=== PATIENT | female | born 1970 | race Hispanic/Latino ===

== ENCOUNTER 2022-01-10 10:47 | Emergency (ER) | payer OTHER ==
--- OUTSIDE RECORDS SUMMARY | 2022-01-10 10:50 | XMS REPORT | Continuity of Care Document ---
:1970 Author Organization [facility] t Address [address] [place] [address] Dr. Nolasco [address] [place] [id number] Care Team Providers Name Role Phone Unavailable Unavailable Unavailable Problems This patient has no known problems. Allergies, Adverse Reactions, Alerts This patient has no known allergies or adverse reactions. Medications This patient has no known medications. Procedures This patient has no known procedures. Results This patient has no known results.
[2022-01-10 11:36] LABS: Absolute Lymphocytes (CBC) 1.5 K/uL (0.7-4.9); Hematocrit 42.5 % (36.0-45.0); Lymphocytes % 33.3 % (15.3-44.8); MPV 8.5 fL (7.6-11.3); RBC Red Blood Cell Count 4.81 M/uL (3.86-4.86)
[2022-01-10 11:40] LABS: Protime INR 1.04
[2022-01-10 11:48] LABS: Urine Blood Trace-lysed (Negative); Urine Glucose Negative (Negative); Urine Protein Negative (Negative); Urine Specific Gravity >=1.030 (1.005-1.030); Urine pH 5.5 (5.0-7.0)
[2022-01-10 11:54] LABS: ALT/SGPT 24 U/L (12-78); AST/SGOT 13 U/L (15-37); Albumin 3.9 g/dL (3.4-5.0); Alkaline Phosphatase 119 U/L (45-117); BUN Blood Urea Nitrogen 16 mg/dL (7-18); Bicarbonate 28 mmol/L (21-32); Bilirubin Direct 0.1 mg/dL (0-0.2); Bilirubin Total 0.4 mg/dL (0.2-1.0); Glucose Level 100 mg/dL (74-106); Magnesium 2.2 mg/dL (1.8-2.4); NT PRO-BNP 72 pg/mL (<125); Potassium 3.8 mmol/L (3.5-5.1); Protein, Total 7.5 g/dL (6.4-8.2); Sodium Level 140 mmol/L (136-145); Troponin High Sensitivity 4.9 pg/mL (<58.9)
[2022-01-10 12:00] LABS: C-Reactive Protein < 2.90 mg/L (<3.00)
[2022-01-10] MEDS ORDERED: FOLIC ACID 5 MG/ML VIAL ONE (12:07)
[2022-01-10] MEDS ORDERED: NA CHLORIDE 0.9% 1,000 ML ONE (12:07)
--- NOTE | 2022-01-10 12:36 | RAD REPORT ---
EXAM DESCRIPTION: CT - Head Brain Wo Cont - 01/10/2022 12:04 pm CLINICAL HISTORY: DIZZINESS COMPARISON: Head angio dated 01/10/2022 TECHNIQUE: All CT scans are performed using dose optimization technique as appropriate and may inclu de automated exposure control or mA/KV adjustment according to patient size. FINDINGS: No intracranial hemorrhage, hydrocephalus or extra-axial fluid collection.No areas of brai n edema or evidence of midline shift. The paranasal sinuses and mastoids are clear. The calvarium is intact. IMPRESSION: No acute intracranial abnormality.
--- NOTE | 2022-01-10 12:37 | RAD REPORT ---
EXAM DESCRIPTION: CT - Head angio - 01/10/2022 12:04 pm CLINICAL HISTORY: HEADACHE COMPARISON: No comparisons TECHNIQUE: CT angiography of the head was performed with MIPs. All CT scans are performed using dose optimization technique as appropriate and may include automated exposure control or mA/KV adjustment according to patient size. FINDINGS: Anterior circulation: No aneurysm or large vessel occlusion. No hemodynamically significant stenosis. No arteriovenous malf ormation identified. Posterior circulation: No aneurysm or large vessel occlusion. No hemodynamically significant stenosis. No arteriovenous malf ormation identified. IMPRESSION: No significant flow abnormality is detected.
--- NOTE | 2022-01-10 12:39 | RAD REPORT ---
EXAM DESCRIPTION: CT - Neck Angio - 01/10/2022 12:05 pm CLINICAL HISTORY: HEADACHE COMPARISON: No comparisons TECHNIQUE: CT angiography of the neck vessels was performed with MIPs. All CT scans are performed using dose optimization technique as appropriate and may include automated exposure control or mA/KV adjustment according to patient size. FINDINGS: A left aortic arch is identified with normal three vessel configuration of the great vesse ls. No significant flow abnormality is seen of the common carotid bilaterally. No significant stenosis is identified involving the cervical segments of both internal carotid arteri es. Left dominant vertebral artery. IMPRESSION: No significant flow abnormality of the neck vessels is identified.
--- NOTE | 2022-01-10 12:44 | RAD REPORT ---
EXAM DESCRIPTION: RAD - Chest Single View - 01/10/2022 12:11 pm CLINICAL HISTORY: COUGH COMPARISON: No comparisons FINDINGS: Lines: None. Lungs: No evidence of edema or pneumonia. Pleural: No significant pleural effusions or pneumothorax. Cardiac: The heart size is within normal limits. Bones: No acute fractures. Other: IMPRESSION: No acute cardiopulmonary disease.
--- NOTE | 2022-01-10 13:02 | EDPHYS ---
Physician Documentation [facility] Name: Alfonso Waldron Age: 51 yrs Sex: Female : 1970 Arrival Date: 01/10/2022 Time: 10:51 Bed 5 Private MD: ED Physician Apolinar Swan HPI: 01/10 12:56 This 51 yrs old Female presents to ER via Ambulatory with complaints of joleen Headache, Numbness, Arm Pain. 12:56 The patient complains of pain to the top of head, left frontal area, left side of the joleen back of head, left occipital area and left base of the skull. The patient describes the headache as aching. Onset: The symptoms/episode began/occurred 2 day(s) ago. Associated signs and symptoms: The patient has no apparent associated signs or symptoms. Severity of symptoms: At its worst the pain was mild, in the emergency department the pain is unchanged. Headache History: The patient has had previous headaches and this one is similar to previous episodes. The symptoms are alleviated by nothing. the symptoms are aggravated by nothing. The patient has not experienced similar symptoms in the past. Historical: - Allergies: 10:58 Tylenol; ab2 - PMHx: 10:58 None; ab2 - PSHx: 10:58 section; ab2 - Immunization history:: Adult Immunizations up to date. - Social history:: Smoking status: Patient denies any tobacco usage or history of. - Family history:: not pertinent. ROS: 12:56 Constitutional: Negative for fever, chills, and weight loss, Eyes: Negative for injury, joleen pain, redness, and discharge, ENT: Negative for injury, pain, and discharge, Neck: Negative for injury, pain, and swelling, Cardiovascular: Negative for chest pain, palpitations, and edema, Respiratory: Negative for shortness of breath, cough, wheezing, and pleuritic chest pain, Abdomen/GI: Negative for abdominal pain, nausea, vomiting, diarrhea, and constipation, Back: Negative for injury and pain, : Negative for injury, bleeding, discharge, and swelling, Skin: Negative for injury, rash, and discoloration, Neuro: Negative for headache, weakness, numbness, tingling, and seizure, Psych: Negative for depression, anxiety, suicide ideation, homicidal ideation, and hallucinations, Allergy/Immunology: Negative for hives, rash, and allergies, Endocrine: Negative for neck swelling, polydipsia, polyuria, polyphagia, and marked weight changes, Hematologic/Lymphatic: Negative for swollen nodes, abnormal bleeding, and unusual bruising. 12:56 MS/extremity: Positive for decreased range of motion, pain, of the left trapezius, left scapular area, left arm and left leg. Exam: 12:56 Constitutional: This is a well developed, well nourished patient who is awake, alert, joleen and in no acute distress. Head/Face: Normocephalic, atraumatic. Eyes: Pupils equal round and reactive to light, extra-ocular motions intact. Lids and lashes normal. Conjunctiva and sclera are non-icteric and not injected. Cornea within normal limits. Periorbital areas with no swelling, redness, or edema. ENT: Nares patent. No nasal discharge, no septal abnormalities noted. Tympanic membranes are normal and external auditory canals are clear. Oropharynx with no redness, swelling, or masses, exudates, or evidence of obstruction, uvula midline. Mucous membranes moist. Neck: Trachea midline, no thyromegaly or masses palpated, and no cervical lymphadenopathy. Supple, full range of motion without nuchal rigidity, or vertebral point tenderness. No Meningismus. Chest/axilla: Normal chest wall appearance and motion. Nontender with no deformity. No lesions are appreciated. Cardiovascular: Regular rate and rhythm with a normal S1 and S2. No gallops, murmurs, or rubs. Normal PMI, no JVD. No pulse deficits. Respiratory: Lungs have equal breath sounds bilaterally, clear to auscultation and percussion. No rales, rhonchi or wheezes noted. No increased work of breathing, no retractions or nasal flaring. Abdomen/GI: Soft, non-tender, with normal bowel sounds. No distension or tympany. No guarding or rebound. No evidence of tenderness throughout. Back: No spinal tenderness. No costovertebral tenderness. Full range of motion. Skin: Warm, dry with normal turgor. Normal color with no rashes, no lesions, and no evidence of cellulitis. MS/ Extremity: Pulses equal, no cyanosis. Neurovascular intact. Full, normal range of motion. Neuro: Awake and alert, GCS 15, oriented to person, place, time, and situation. Cranial nerves II-XII grossly intact. Motor strength 5/5 in all extremities. Sensory grossly intact. Cerebellar exam normal. Normal gait. Psych: Awake, alert, with orientation to person, place and time. Behavior, mood, and affect are within normal limits. 12:56 Neuro: Orientation: is normal, appropriate for stated age, no acute changes, Mentation: is normal, appropriate for stated age, no acute changes, Memory: is normal, appropriate for stated age, no acute changes, Cranial nerves: grossly normal, is grossly normal based on the patient's age, no acute changes, CN II- XII are normal as tested, extraocular movements are intact, Facial palsy and sensory deficits are absent. Nystagmus is absent. Cerebellar function: is grossly normal, is grossly normal based on the patient's age, no acute changes, Motor: is normal, is grossly normal based on the patient's age, no acute changes, moves all fours, Sensation: is normal, no obvious gross deficits, appropriate no acute changes, Gait: is steady, appropriate for age, seizure activity, is not displayed by the patient. 13:07 ECG was reviewed by the Attending Physician. [facility] Vital Signs: 10:54 BP 142 / 87; Pulse 65; Resp 16; Temp 97.8(TE); Pulse Ox 100% on R/A; Weight 58.97 kg; ab2 Height 5 ft. 0 in. (152.40 cm); Pain 8/10; 11:00 BP 138 / 80; Pulse 70; Resp 18; Pulse Ox 100% ; jh6 13:30 BP 132 / 76; Pulse 74; Resp 16; Temp 97.7(O); Pulse Ox 100% ; Pain 3/10; jh6 10:54 Body Mass Index 25.39 (58.97 kg, 152.40 cm) ab2 NIH Stroke Scale Scores: 10:58 NIHSS Score: 0 ab2 Lacie Coma Score: 12:59 Eye Response: spontaneous(4). Verbal Response: oriented(5). Motor Response: obeys [facility] commands(6). Total: 15. MDM: 11:03 Patient medically screened. joleen 12:59 Differential diagnosis: cluster headache, hypertensive headache, hyponatremia, joleen intracerebral hemorrhage, migraine, neoplasm, otitis, sinusitis, temporal arteritis, tension headache. Data reviewed: vital signs, nurses notes, lab test result(s), EKG, radiologic studies, CT scan, plain films. Data interpreted: marketing services manager: rate is 65 beats/min, rhythm is regular, Pulse oximetry: on room air is 100 %. Test interpretation: by ED physician or midlevel provider: ECG, plain radiologic studies. Counseling: I had a detailed discussion with the patient and/or guardian regarding: the historical points, exam findings, and any diagnostic results supporting the discharge/admit diagnosis, lab results, radiology results, the need for outpatient follow up, for definitive care, a family practitioner, a neurologist. 01/10 11:05 Order name: Basic Metabolic Panel; Complete Time: 12:22 [facility] 01/10 11:05 Order name: CBC with Diff; Complete Time: 12: [facility] 01/10 11:05 Order name: LFT's; Complete Time: 12: [facility] 01/10 11:05 Order name: Magnesium; Complete Time: 12: [facility] 01/10 11:05 Order name: NT PRO-BNP; Complete Time: 12:22 [facility] 01/10 11:05 Order name: PT-INR; Complete Time: 12:22 [facility] 01/10 11:05 Order name: Troponin HS; Complete Time: 12:22 [facility] 01/10 11:05 Order name: XRAY Chest (1 view); Complete Time: 12:55 [facility] 01/10 11:05 Order name: CT Head Brain wo Cont; Complete Time: 12:55 [facility] 01/10 11:05 Order name: CT Head Angio; Complete Time: 12:55 [facility] 01/10 11:06 Order name: CRP; Complete Time: 12:22 [facility] 01/10 11:06 Order name: Sed Rate; Complete Time: 12:22 [facility] 01/10 11:48 Order name: Urine Dipstick-Ancillary; Complete Time: 12:22 [facility] 01/10 11:56 Order name: Urine --Ancillary (enter results); Complete Time: 12:55 01/10 11:05 Order name: EKG; Complete Time: 11:05 [facility] 01/10 11:05 Order name: Cardiac monitoring [facility] 01/10 11:05 Order name: EKG - Nurse/Tech [facility] 01/10 11:05 Order name: IV Saline Lock; Complete Time: 12:42 [facility] 01/10 11:05 Order name: Labs collected and sent; Complete Time: 12:41 [facility] 01/10 11:05 Order name: O2 Per Protocol; Complete Time: 12:41 [facility] 01/10 11:05 Order name: O2 Sat Monitoring; Complete Time: 12:41 [facility] 01/10 11:05 Order name: CT Neck Angio; Complete Time: 12:55 [facility] 01/10 11:06 Order name: Urine Dipstick-Ancillary (obtain specimen); Complete Time: 11:53 [facility] EC:07 Rate is 56 beats/min. Rhythm is regular. QRS Waldo is Normal. NH interval is normal. QRS joleen interval is normal. QT interval is normal. No Q waves. T waves are Normal. No ST changes noted. Clinical impression: Normal ECG, Sinus bradycardia, and No evidence of ischemia. Interpreted by me. Reviewed by me. Administered Medications: 12:52 Drug: NS 0.9% 1000 ml Route: IV; Rate: 1 bolus; Site: left antecubital; [facility] 12:53 Drug: foLIC Acid 1 mg Route: IVPB; Site: left antecubital; [facility] 13:37 Not Given (Patient Refused): Aspirin Chewable Tablet 324 mg PO once; 81 mg tablets x 4 [facility] Disposition Summary: 01/10/22 13:01 Discharge Ordered Location: Home joleen Problem: new joleen Symptoms: have improved joleen Condition: Stable joleen Diagnosis - Weakness joleen - Headache joleen Followup: joleen - With: Private Physician - When: 2 - 3 days - Reason: Recheck today's complaints, Continuance of care, Re-evaluation by your physician Followup: joleen - With: Aneesh Mcgowan MD - When: 2 - 3 days - Reason: Recheck today's complaints, Continuance of care, Re-evaluation by your physician Discharge Instructions: - Discharge Summary Sheet joleen - General Headache Without Cause joleen - Aspirin and Your Heart joleen - General Headache Without Cause, [id number] joleen Forms: - Medication Reconciliation Form joleen - Thank You Letter joleen - Antibiotic Education joleen - Prescription Opioid Use joleen Prescriptions: - Folic Acid 1 mg Oral Tablet - take 1 tablet by ORAL route once daily; 30 tablet; Refills: 0, Product joleen Selection Permitted NIH Stroke Scale - NIH Stroke Score Date: 01/10/2022 Time: 10:58 Total Score = 0 1a. Level of Consciousness (LOC) - 0(Alert) 1b. Level of Consciousness (LOC) (Month \T\ Age) - 0(Both) 1c. LOC Commands (Open \T\ Closes Eyes/Assembly Stock Supervisor) - 0(Both) 2. Best Gaze (Lateral Gaze Paresis) - 0(Normal) 3. Visual Field Loss - 0(No visual loss) 4. Facial Palsy - 0(Normal) 5a. Left Arm: Motor (10-second hold) - 0(No drift) 5b. Right Arm: Motor (10-second hold) - 0(No drift) 6a. Left Leg: Motor (5-second hold - always test supine) - 0(No drift) 6b. Right Leg: Motor (5-second hold - always test supine) - 0(No drift) 7. Limb Ataxia (finger/nose \T\ heel/iglesias - test with eyes open) - 0(Absent) 8. Sensory Loss (pinprick arms/legs/face) - 0(Normal) 9. Best Language: Aphasia (description/naming/reading) - 0(No aphasia) 10. Dysarthria (speech clarity - read or repeat words) - 0(Normal) 11. Extinction and Inattention (visual/tactile/auditory/spatial/personal) - 0(No abnormality) Initials: ab2 Signatures: Dispatcher [employer] EDApolinar Schuster MD MD cha Hastedt, Jennifer, RN RN 6 Quincy Domínguez ab2 Corrections: (The following items were deleted from the chart) 10:58 10:58 Allergies: No Known Allergies; ab2 ab2
--- NOTE | 2022-01-10 13:02 | ER ---
Nurse's Notes [facility] Name: Alfonso Waldron Age: 51 yrs Sex: Female : 1970 Arrival Date: 01/10/2022 Time: 10:51 Bed 5 Private MD: Diagnosis: Weakness;Headache Presentation: 01/10 10:54 Chief complaint: Patient states: "I have a headache on the left side of my head and the ab2 left side of my body feels weak. When I turn my head a certain way my neck hurts too" Pt states this started 2 weeks ago. Coronavirus screen: Vaccine status: Patient reports receiving the 2nd dose of the covid vaccine. Client denies travel out of the [place] in the last 14 days. At this time, the client does not indicate any symptoms associated with coronavirus-19. Ebola Screen: Patient negative for fever greater than or equal to 101.5 degrees Fahrenheit, and additional compatible Ebola Virus Disease symptoms Patient denies exposure to infectious person. Patient denies travel to an Ebola-affected area in the 21 days before illness onset. No symptoms or risks identified at this time. Initial Sepsis Screen: Does the patient meet any 2 criteria? No. Patient's initial sepsis screen is negative. Does the patient have a suspected source of infection? No. Patient's initial sepsis screen is negative. Risk Assessment: Do you want to hurt yourself or someone else? Patient reports no desire to harm self or others. Onset of symptoms is unknown. 10:54 Method Of Arrival: Ambulatory ab2 10:54 Acuity: DAWNA 3 ab2 Triage Assessment: 10:58 Headache History: Denies prior headaches. General: Appears in no apparent distress. ab2 uncomfortable, Behavior is calm, cooperative, appropriate for age. Pain: Complains of pain in head Pain currently is 8 out of 10 on a pain scale. Pain began 2-3 days ago. Also complains of weakness. Neuro: Level of Consciousness is awake, alert, obeys commands, Oriented to person, place, time, situation, Appropriate for age Studio Operations Manager are equal bilaterally Moves all extremities. Gait is steady, Speech is normal, Facial symmetry appears normal, Intact Reports headache in left weakness in left arm and left leg. Cardiovascular: Denies chest pain, shortness of breath, Patient's skin is warm and dry. Respiratory: Airway is patent Respiratory effort is even, unlabored, Respiratory pattern is regular, Denies shortness of breath. Historical: - Allergies: 10:58 Tylenol; ab2 - PMHx: 10:58 None; ab2 - PSHx: 10:58 section; ab2 - Immunization history:: Adult Immunizations up to date. - Social history:: Smoking status: Patient denies any tobacco usage or history of. - Family history:: not pertinent. Screenin:55 Abuse screen: Denies threats or abuse. Denies injuries from another. jh6 10:55 Nutritional screening: No deficits noted. Tuberculosis screening: No symptoms or risk jh6 factors identified. Fall Risk None identified. Assessment: 11:00 General: Appears in no apparent distress. comfortable, slender, well groomed, well jh6 developed, well nourished, Behavior is calm, cooperative. 11:00 Pain: Complains of pain in occipital area and base of the skull Pain radiates to scalp jh6 and left arm Pain currently is 4 out of 10 on a pain scale. Quality of pain is described as burning, sharp, Pain began 1-2 weeks ago Is intermittent, Alleviated by rest, Aggravated by exercise, increased activity, repositioning. Neuro: Level of Consciousness is awake, alert, obeys commands, Oriented to person, place, time, Studio Operations Manager are equal bilaterally. 12:20 Reassessment: No changes from previously documented assessment. Patient and/or family jh6 updated on plan of care and expected duration. Pain level reassessed. 13:30 Reassessment: Patient and/or family updated on plan of care and expected duration. Pain jh6 level reassessed. pt states that if she moves her head towards the left the pain in the back of her head is worse. states that she feels better if she does not move her neck. Vital Signs: 10:54 BP 142 / 87; Pulse 65; Resp 16; Temp 97.8(TE); Pulse Ox 100% on R/A; Weight 58.97 kg; ab2 Height 5 ft. 0 in. (152.40 cm); Pain 8/10; 11:00 BP 138 / 80; Pulse 70; Resp 18; Pulse Ox 100% ; jh6 13:30 BP 132 / 76; Pulse 74; Resp 16; Temp 97.7(O); Pulse Ox 100% ; Pain 3/10; jh6 10:54 Body Mass Index 25.39 (58.97 kg, 152.40 cm) ab2 Lacie Coma Score: 12:59 Eye Response: spontaneous(4). Verbal Response: oriented(5). Motor Response: obeys joleen commands(6). Total: 15. NIH Stroke Scale Scores: 10:58 NIHSS Score: 0 ab2 ED Course: 10:51 Patient arrived in ED. rg4 10:58 Triage completed. ab2 11:00 Arm band placed on right wrist. ab2 11:03 Apolinar Swan MD is Attending Physician. joleen 11:03 Patient has correct armband on for positive identification. Bed in low position. Call mh5 light in reach. Adult w/ patient. Warm blanket given. Pulse ox on. NIBP on. 11:58 No provider procedures requiring assistance completed. jh6 12:06 CT Head Brain wo Cont In Process Unspecified. EDMS 12:06 CT Head Angio In Process Unspecified. EDMS 12:06 CT Neck Angio In Process Unspecified. EDMS 12:10 Inserted saline lock: 20 gauge in left antecubital area, using aseptic technique. Blood jh6 collected. 12:12 XRAY Chest (1 view) In Process Unspecified. EDMS 12:39 Milli Beckford, RN is Primary Nurse. jh6 13:00 Aneesh Mcgwoan MD is Referral Physician. joleen 13:47 IV discontinued, intact, bleeding controlled, No redness/swelling at site. jh6 Administered Medications: 12:52 Drug: NS 0.9% 1000 ml Route: IV; Rate: 1 bolus; Site: left antecubital; jh6 12:53 Drug: foLIC Acid 1 mg Route: IVPB; Site: left antecubital; jh6 13:37 Not Given (Patient Refused): Aspirin Chewable Tablet 324 mg PO once; 81 mg tablets x 4 6 Outcome: 13:01 Discharge ordered by . joleen 13:30 Discharged to home ambulatory. jh6 13:30 Condition: stable 13:30 Discharge instructions given to patient, family, Instructed on discharge instructions, follow up and referral plans. Demonstrated understanding of instructions, follow-up care, medications, Prescriptions given X 2. 13:47 Patient left the ED. 6 NIH Stroke Scale - NIH Stroke Score Date: 01/10/2022 Time: 10:58 Total Score = 0 1a. Level of Consciousness (LOC) - 0(Alert) 1b. Level of Consciousness (LOC) (Month \\T\\ Age) - 0(Both) 1c. LOC Commands (Open \\T\\ Closes Eyes/Virtual Recruiter) - 0(Both) 2. Best Gaze (Lateral Gaze Paresis) - 0(Normal) 3. Visual Field Loss - 0(No visual loss) 4. Facial Palsy - 0(Normal) 5a. Left Arm: Motor (10-second hold) - 0(No drift) 5b. Right Arm: Motor (10-second hold) - 0(No drift) 6a. Left Leg: Motor (5-second hold - always test supine) - 0(No drift) 6b. Right Leg: Motor (5-second hold - always test supine) - 0(No drift) 7. Limb Ataxia (finger/nose \\T\\ heel/iglesias - test with eyes open) - 0(Absent) 8. Sensory Loss (pinprick arms/legs/face) - 0(Normal) 9. Best Language: Aphasia (description/naming/reading) - 0(No aphasia) 10. Dysarthria (speech clarity - read or repeat words) - 0(Normal) 11. Extinction and Inattention (visual/tactile/auditory/spatial/personal) - 0(No abnormality) Initials: ab2 Signatures: Dispatcher [employer] EDApolinar Schuster MD MD cha Garcia, Rubi Uyen Mcfarland 5 Milli Beckford RN RN jh6 Quincy Domínguez ab2 Corrections: (The following items were deleted from the chart) 10:58 10:58 Allergies: No Known Allergies; ab2 ab2
[2022-01-10 14:48] VITALS: O2SAT 100
[2022-01-10 14:51] VITALS: BP 132/76; TEMP 97.7
--- NOTE | 2022-01-12 09:28 | EKG ---
Test Date: 2022-01-10 Test Time: 13:07:49 Chemist Enzymes: MOON MEASUREMENT RESULTS: Intervals: Rate: 56 TX: 166 QRSD: 88 QT: 438 QTc: 422 [place]: P: 44 TX: 166 QRS: 72 T: 63 INTERPRETIVE STATEMENTS: Sinus bradycardia Otherwise normal ECG No previous ECG available for comparison Electronically Signed On 01-12-22 09:25:58 CDT by Ulysses Clemens
== END 2022-01-10 13:47 | disposition home or self-care (01) ==
LOC: ER 10:47
DX: R51.9 Headache, unspecified (principal); R53.1 Weakness; R20.0 Anesthesia of skin; Z88.6 Allergy status to analgesic agent
CPT/HCPCS: 93005; 85025; 80048; 36415; 83735; 81025; 85610; 82565; 80076; 85652; 81003; 84484; 83880; 86140; 70450; 70496; 70498; 71045; 96374; 99284; J7030

== ENCOUNTER 2022-11-05 19:51 | Emergency (ER) | payer OTHER ==
--- OUTSIDE RECORDS SUMMARY | 2022-11-05 19:57 | XMS REPORT | Continuity of Care Document ---
:1970 Author Organization [facility] t Address [address] [place] [address] Care Team Providers Name Role Phone Kelin Atkinson Primary Care Physician [phone] Problems This patient has no known problems. Allergies, Adverse Reactions, Alerts Allergy Allergy Status Severity Reaction(s) Onset Inactive Treating Comm ents Source Name Type Date Date Clinician Tylenol Propensi Active - Oral ty to 03-26 adverse 00:00: reaction 00 to drug Medications Ordered Filled Start Stop Current Ordering Indication Dosage Frequency Signature Comments Components Source Medication Medication Date Date Medication? Clinician (SIG) Name Name TAKE 2021-10 No TABLET AT 1-09 BEDTIME 00:00: NEEDED. 00 Dose 2021-10 No Unknown 0-10 00:00: 00 Dose 2021-10 No Unknown 0-10 00:00: 00 Dose 2021-0 No 25 Unknown 8-16 00:00: 00 Dose 2021-0 No 25 Unknown 8-16 00:00: 00 Dose 2021-0 No 25 Unknown 8-16 00:00: 00 Dose 2021-0 No 250 Unknown 7-28 00:00: 00 TAKE 1 2021-0 No 25 TABLET BY 7-28 MOUTH EVERY 00:00: DAY 00 Dose 2021-0 No 250 Unknown 728 00:00: 00 TAKE 1 2021-0 No 25 TABLET BY 7-28 MOUTH EVERY 00:00: DAY 00 Dose 2021-0 No 250 Unknown 728 00:00: 00 TAKE 1 2021-0 No 25 TABLET BY 7-28 MOUTH EVERY 00:00: DAY 00 Dose 2021-0 No 100 Unknown 7 00:00: 00 Dose 2021-0 No 100 Unknown 7 00:00: 00 Dose 2022-0 No 100 Unknown 7- 00:00: 00 TAKE 1/2 2022-0 No 25 TABLET BY 7-20 MOUTH EVERY 00:00: 6 TO 8 00 HOURS NEEDED FOR ANXIETY Dose 2022-0 No 25 Unknown 7-20 00:00: 00 Dose 2022-0 No 250 Unknown 7-20 00:00: 00 &lt 2022-0 No 250 7-20 00:00: 00 TAKE 1/2 TO 2022-0 No 100 1 TABLET BY 7-20 MOUTH EVERY 00:00: NIGHT AT 00 BEDTIME NEEDED FOR SLEEP Dose 2022-0 No 25 Unknown 7- 00:00: 00 TAKE 5 ML 2022-0 No BY MOUTH 7-20 EVERY 6 00:00: HOURS 00 NEEDED TAKE 1/2 2022-0 No 25 TABLET BY 7-20 MOUTH EVERY 00:00: 6 TO 8 00 HOURS NEEDED FOR ANXIETY Dose 2-0 No 25 Unknown 7-20 00:00: 00 Dose 2-0 No 250 Unknown 7-20 00:00: 00 &lt 2022-0 No 250 7-20 00:00: 00 TAKE 1/2 TO 2-0 No 100 1 TABLET BY 7-20 MOUTH EVERY 00:00: NIGHT AT 00 BEDTIME NEEDED FOR SLEEP Dose 2022-0 No 25 Unknown 7-20 00:00: 00 TAKE 5 ML 2022-0 No BY MOUTH 7-20 EVERY 6 00:00: HOURS 00 NEEDED TAKE 1/2 2022-0 No 25 TABLET BY 7-20 MOUTH EVERY 00:00: 6 TO 8 00 HOURS NEEDED FOR ANXIETY Dose 2-0 No 25 Unknown 7- 00:00: 00 Dose 2022-0 No 250 Unknown 7-20 00:00: 00 &lt 2022-0 No 250 7-20 00:00: 00 TAKE 1/2 TO 2022-0 No 100 1 TABLET BY 7-20 MOUTH EVERY 00:00: NIGHT AT 00 BEDTIME NEEDED FOR SLEEP Dose 2022-0 No 25 Unknown 7-20 00:00: 00 TAKE 5 ML 2022-0 No BY MOUTH 7-20 EVERY 6 00:00: HOURS 00 NEEDED Dose 2022-0 No 25 Unknown 7-15 00:00: 00 Dose 2022-0 No 250 Unknown 7-15 00:00: 00 Dose 2022-0 No 25 Unknown 7-15 00:00: 00 Dose 2022-0 No 25 Unknown 7- 00:00: 00 Dose 2022-0 No 250 Unknown 7- 00:00: 00 Dose 2022-0 No 25 Unknown 7-15 00:00: 00 Dose 2022-0 No 25 Unknown 7-15 00:00: 00 Dose 2022-0 No 250 Unknown 7- 00:00: 00 Dose 2022-0 No 25 Unknown 7- 00:00: 00 TAKE 5 ML 2022-0 No BY MOUTH 7-08 EVERY 6 00:00: HOURS 00 NEEDED TAKE 5 ML 2022-0 No BY MOUTH 7-08 EVERY 6 00:00: HOURS 00 NEEDED TAKE 5 ML 2022-0 No BY MOUTH 7-08 EVERY 6 00:00: HOURS 00 NEEDED TAKE 1/2 TO 2021-0 No 1 TABLET BY 6-22 MOUTH EVERY 00:00: NIGHT AT 00 BEDTIME NEEDED FOR SLEEP TAKE 2 2021-0 No TABLET BY 6-22 MOUTH EVERY 00:00: 6 TO 8 00 HOURS NEEDED FOR ANXIETY Dose 2021-0 No Unknown 04-08 00:00: 00 TAKE 1/2 TO 2021-0 No 1 TABLET BY 6-22 MOUTH EVERY 00:00: NIGHT AT 00 BEDTIME NEEDED FOR SLEEP Dose 2021-0 No Unknown 04-08 00:00: 00 Dose 2-0 No Unknown 04-08 00:00: 00 TAKE 1/2 TO 2021-0 No 1 TABLET BY 6-22 MOUTH EVERY 00:00: NIGHT AT 00 BEDTIME NEEDED FOR SLEEP TAKE /2 2021-0 No TABLET BY 6-22 MOUTH EVERY 00:00: 6 TO 8 00 HOURS NEEDED FOR ANXIETY Dose 2-0 No Unknown 04-08 00:00: 00 TAKE 1/2 TO 2021-0 No 1 TABLET BY 6-22 MOUTH EVERY 00:00: NIGHT AT 00 BEDTIME NEEDED FOR SLEEP Dose 2-0 No Unknown 04-08 00:00: 00 Dose 2-0 No Unknown 04-08 00:00: 00 TAKE 1/2 TO 2021-0 No 1 TABLET BY 6-22 MOUTH EVERY 00:00: NIGHT AT 00 BEDTIME NEEDED FOR SLEEP TAKE /2 2021-0 No TABLET BY 6-22 MOUTH EVERY 00:00: 6 TO 8 00 HOURS NEEDED FOR ANXIETY Dose 2022-0 No Unknown 04-08 00:00: 00 TAKE 1/2 TO 2021-0 No 1 TABLET BY 6-22 MOUTH EVERY 00:00: NIGHT AT 00 BEDTIME NEEDED FOR SLEEP Dose 2-0 No Unknown 04-08 00:00: 00 Dose 2-0 No Unknown 04-08 00:00: 00 TAKE 1 2021-0 No TABLET BY 6-21 MOUTH EVERY 00:00: DAY 00 Dose 2021-0 No Unknown 04-07 00:00: 00 Dose 2021-0 No Unknown 04-07 00:00: 00 TAKE 1/2 TO 2021-0 No 1 TABLET BY 6-21 MOUTH EVERY 00:00: NIGHT AT 00 BEDTIME NEEDED FOR SLEEP TAKE 1/2 2021-0 No TABLET BY 6-21 MOUTH EVERY 00:00: 6 TO 8 00 HOURS NEEDED FOR ANXIETY TAKE 2 TO 2021-0 No 1 TABLET BY 6-21 MOUTH EVERY 00:00: NIGHT AT 00 BEDTIME NEEDED FOR SLEEP Dose 2021-0 No Unknown 04-07 00:00: 00 TAKE 1/2 TO 2021-0 No 1 TABLET BY 6-21 MOUTH EVERY 00:00: NIGHT AT 00 BEDTIME NEEDED FOR SLEEP TAKE 5 ML 2021-0 No BY MOUTH - EVERY 6 00:00: HOURS 00 NEEDED TAKE 1/2 2021-0 No TABLET BY 6-21 MOUTH EVERY 00:00: 6 TO 8 00 HOURS NEEDED FOR ANXIETY Dose 2021-0 No Unknown 04-07 00:00: 00 TAKE 1 2021-0 No TABLET BY 6-21 MOUTH EVERY 00:00: DAY 00 Dose 2-0 No Unknown 04-07 00:00: 00 Dose 2-0 No Unknown 04-07 00:00: 00 TAKE 1/2 TO 2021-0 No 1 TABLET BY 6-21 MOUTH EVERY 00:00: NIGHT AT 00 BEDTIME NEEDED FOR SLEEP TAKE 1/2 2021-0 No TABLET BY 6-21 MOUTH EVERY 00:00: 6 TO 8 00 HOURS NEEDED FOR ANXIETY TAKE 2 TO 2021-0 No 1 TABLET BY 6-21 MOUTH EVERY 00:00: NIGHT AT 00 BEDTIME NEEDED FOR SLEEP Dose 2021-0 No Unknown 04-07 00:00: 00 TAKE 1/2 TO 2021-0 No 1 TABLET BY 6-21 MOUTH EVERY 00:00: NIGHT AT 00 BEDTIME NEEDED FOR SLEEP TAKE 5 ML 2022-0 No BY MOUTH 6-21 EVERY 6 00:00: HOURS 00 NEEDED TAKE 1/2 2022-0 No TABLET BY 6-21 MOUTH EVERY 00:00: 6 TO 8 00 HOURS NEEDED FOR ANXIETY Dose 2022-0 No Unknown 04-07 00:00: 00 TAKE 1 2-0 No TABLET BY 6-21 MOUTH EVERY 00:00: DAY 00 Dose 2022-0 No Unknown 04-07 00:00: 00 Dose 2022-0 No Unknown 04-07 00:00: 00 TAKE 1/2 TO 2-0 No 1 TABLET BY 6-21 MOUTH EVERY 00:00: NIGHT AT 00 BEDTIME NEEDED FOR SLEEP TAKE 1/2 2-0 No TABLET BY 6-21 MOUTH EVERY 00:00: 6 TO 8 00 HOURS NEEDED FOR ANXIETY TAKE 1/2 TO 2021-0 No 1 TABLET BY 6-21 MOUTH EVERY 00:00: NIGHT AT 00 BEDTIME NEEDED FOR SLEEP Dose 2-0 No Unknown 04-07 00:00: 00 TAKE 1/2 TO 2021-0 No 1 TABLET BY 6-21 MOUTH EVERY 00:00: NIGHT AT 00 BEDTIME NEEDED FOR SLEEP TAKE 5 ML 2-0 No BY MOUTH - EVERY 6 00:00: HOURS 00 NEEDED TAKE 1/2 2-0 No TABLET BY 6-21 MOUTH EVERY 00:00: 6 TO 8 00 HOURS NEEDED FOR ANXIETY Dose 2-0 No Unknown 04-07 00:00: 00 losartan 25 2022-0 No 1mg mg tablet 03-26 00:00: 00 Dose 2022-0 No Unknown 03-26 00:00: 00 Dose 2022-0 No Unknown 03-26 00:00: 00 Dose 2022-0 No Unknown 03-26 00:00: 00 Dose 2-0 No Unknown 03-26 00:00: 00 &lt 2022-0 No 03-26 00:00: 00 Dose 2-0 No Unknown 03-26 00:00: 00 Dose 2-0 No Unknown 03-26 00:00: 00 losartan 25 2022-0 No 1mg mg tablet 03-26 00:00: 00 Dose 2022-0 No Unknown 03-26 00:00: 00 Dose 2022-0 No Unknown 6-09 00:00: 00 Dose 2022-0 No Unknown 6- 00:00: 00 Dose 2022-0 No Unknown 6- 00:00: 00 &lt 2022-0 No 6- 00:00: 00 Dose 2022-0 No Unknown 6- 00:00: 00 Dose 2022-0 No Unknown 6- 00:00: 00 losartan 25 2022-0 No 1mg mg tablet 6- 00:00: 00 hydroxyzine 2022-0 No 5mg HCl 25 mg 6- tablet 00:00: 00 Dose 2022-0 No Unknown 6- 00:00: 00 Dose 2022-0 No Unknown 6- 00:00: 00 Dose 2022-0 No Unknown 6- 00:00: 00 &lt 2022-0 No 6- 00:00: 00 Dose 2022-0 No Unknown 6- 00:00: 00 Dose 2022-0 No Unknown 6- 00:00: 00 Dose 2022-0 No Unknown 3-27 00:00: 00 Dose 2022-0 No Unknown 3-27 00:00: 00 Dose 2022-0 No Unknown 3-27 00:00: 00 Dose 2022-0 No Unknown 3-27 00:00: 00 Dose 2022-0 No Unknown 3-27 00:00: 00 Dose 2022-0 No Unknown 3-27 00:00: 00 Dose 2022-0 No Unknown 3-27 00:00: 00 Dose 2022-0 No Unknown 3-27 00:00: 00 Dose 2022-0 No Unknown 3-27 00:00: 00 Dose 2022-0 No Unknown 3-27 00:00: 00 Dose 2022-0 No Unknown 3-27 00:00: 00 Dose 2022-0 No Unknown 3-27 00:00: 00 Dose 2022-0 No Unknown 3-27 00:00: 00 Dose 2022-0 No Unknown 3-27 00:00: 00 Dose 2022-0 No Unknown 3-27 00:00: 00 Dose 2022-0 No Unknown 3-27 00:00: 00 Dose 2022-0 No Unknown 3-27 00:00: 00 Dose 2022-0 No Unknown 3-27 00:00: 00 Dose 2022-0 No Unknown 3-27 00:00: 00 Dose 2022-0 No Unknown 3-27 00:00: 00 Dose 2022-0 No Unknown 3-27 00:00: 00 Dose 2022-0 No Unknown 3-27 00:00: 00 Dose 2022-0 No Unknown 3-27 00:00: 00 Dose 2022-0 No Unknown 3-27 00:00: 00 Dose 2022-0 No Unknown 3-27 00:00: 00 Dose 2022-0 No Unknown 3-27 00:00: 00 Dose 2022-0 No Unknown 3-27 00:00: 00 Dose 2022-0 No Unknown 3-27 00:00: 00 Dose 2022-0 No Unknown 3-27 00:00: 00 Dose 2022-0 No Unknown 3-27 00:00: 00 Dose 2022-0 No Unknown 3-27 00:00: 00 Dose 2022-0 No Unknown 3-27 00:00: 00 Dose 2022-0 No Unknown 3-27 00:00: 00 Dose 2022-0 No Unknown 3-27 00:00: 00 Dose 2022-0 No Unknown 3-27 00:00: 00 Dose 2022-0 No Unknown 3-27 00:00: 00 Dose 2022-0 No Unknown 3-27 00:00: 00 Dose 2022-0 No Unknown 3-27 00:00: 00 Dose 2022-0 No Unknown 3-27 00:00: 00 Dose 2022-0 No Unknown 3-27 00:00: 00 Dose 2022-0 No Unknown 3-27 00:00: 00 Dose 2022-0 No Unknown 3-27 00:00: 00 Dose 2022-0 No Unknown 3-26 00:00: 00 levocetiriz 2022-0 No 1mg ine 5 mg 3-26 tablet 00:00: 00 trazodone 2022-0 No 51mg 100 mg 3-26 tablet 00:00: 00 Dose 2022-0 No Unknown 3-26 00:00: 00 Dose 2022-0 No Unknown 3-26 00:00: 00 Dose 2022-0 No Unknown 3-26 00:00: 00 Dose 2022-0 No Unknown 3-26 00:00: 00 Dose 2022-0 No Unknown 3-26 00:00: 00 Dose 2022-0 No Unknown 3-26 00:00: 00 Dose 2022-0 No Unknown 3-26 00:00: 00 Dose 2022-0 No Unknown 3-26 00:00: 00 Dose 2022-0 No Unknown 3-26 00:00: 00 Dose 2022-0 No Unknown 3-26 00:00: 00 Dose 2022-0 No Unknown 3-26 00:00: 00 levocetiriz 2022-0 No 1mg ine 5 mg 3-26 tablet 00:00: 00 trazodone 2022-0 No 51mg 100 mg 3-26 tablet 00:00: 00 Dose 2022-0 No Unknown 3-26 00:00: 00 Dose 2022-0 No Unknown 3-26 00:00: 00 Dose 2022-0 No Unknown 3-26 00:00: 00 Dose 2022-0 No Unknown 3-26 00:00: 00 Dose 2022-0 No Unknown 3-26 00:00: 00 Dose 2022-0 No Unknown 3-26 00:00: 00 Dose 2022-0 No Unknown 3-26 00:00: 00 Dose 2022-0 No Unknown 3-26 00:00: 00 levocetiriz 2022-0 No 1mg ine 5 mg 3-26 tablet 00:00: 00 trazodone 2022-0 No 51mg 100 mg 3-26 tablet 00:00: 00 Dose 2-0 No Unknown 3-26 00:00: 00 Dose 2022-0 No Unknown 3-26 00:00: 00 Dose 2022-0 No Unknown 3-26 00:00: 00 Dose 2022-0 No Unknown 3-26 00:00: 00 Vital Signs Vital Name Observation Time Observation Value Comments Source BP Systolic 2022-04-07 15:44:00 106 mm[Hg] BP Diastolic 2022-04-07 15:44:00 77 mm[Hg] Weight Measured 2022-04-07 15:44:00 Height Measured 2022-04-07 15:44:00 Body Temperature 2022-04-07 15:44:00 Heart Rate 2022-04-07 15:44:00 Respiratory Rate 2022-04-07 15:44:00 BP Systolic 2022-03-26 16:39:00 157 mm[Hg] BP Diastolic 2022-03-26 16:39:00 94 mm[Hg] Weight Measured 2022-03-26 16:39:00 129.80 pounds Height Measured 2022-03-26 16:39:00 58.10 inches Body Temperature 2022-03-26 16:39:00 98.30 degrees Heart Rate 2022-03-26 16:39:00 92.00 /min Respiratory Rate 2022-03-26 16:39:00 BP Systolic 2022-01-10 10:01:00 128 mm[Hg] BP Diastolic 2022-01-10 10:01:00 76 mm[Hg] Weight Measured 2022-01-10 10:01:00 130.60 pounds Height Measured 2022-01-10 10:01:00 58.10 inches Body Temperature 2022-01-10 10:01:00 98.10 degrees Heart Rate 2022-01-10 10:01:00 65.00 /min Respiratory Rate 2022-01-10 10:01:00 21.00 /min Procedures This patient has no known procedures. Plan of Care Planned Activity Planned Date Details Comments Source Goal Plan of Care Note [code = 78615-8] Goal Plan of Care Note [code = 78291-0] Goal Plan of Care Note [code = 01612-1] Goal Plan of Care Note [code = 54191-8] Goal Plan of Care Note [code = 79007-2] Goal Plan of Care Note [code = 25769-0] Goal Plan of Care Note [code = 09709-2] Goal Plan of Care Note [code = 18550-0] Goal Plan of Care Note [code = 95666-8] Goal Plan of Care Note [code = 45376-1] Goal Plan of Care Note [code = 18609-9] Goal Plan of Care Note [code = 13379-6] Goal Plan of Care Note [code = 57505-2] Goal Plan of Care Note [code = 00529-4] Goal Plan of Care Note [code = 36430-0] Goal Plan of Care Note [code = 32303-9] Goal Plan of Care Note [code = 25026-4] Goal Plan of Care Note [code = 93676-6] Goal Plan of Care Note [code = 12499-0] Goal Plan of Care Note [code = 42078-0] Goal Plan of Care Note [code = 29932-5] Goal Plan of Care Note [code = 16413-7] Goal Plan of Care Note [code = 56794-6] Goal Plan of Care Note [code = 14798-9] Goal Plan of Care Note [code = 67607-9] Goal Plan of Care Note [code = 92685-3] Goal Plan of Care Note [code = 91818-7] Goal Plan of Care Note [code = 24953-7] Goal Plan of Care Note [code = 81921-3] Goal Plan of Care Note [code = 19014-3] Goal Plan of Care Note [code = 93077-7] Goal Plan of Care Note [code = 21462-9] Goal Plan of Care Note [code = 36431-6] Goal Plan of Care Note [code = 47593-2] Goal Plan of Care Note [code = 84857-5] Goal Plan of Care Note [code = 28880-1] Encounters Start End Encounter Admission Attending Care Care Encounter Source Date/Time Date/Time Type Type Clinicians Facility Department ID 2022-08-26 2022-08-26 Outpatient [facility] [id number] Juan C 08:22:29 08:22:29 1109 F Wally 2022-08-25 2022-08-25 Outpatient [id number] 00:00:00 00:00:00 Visit [id number] 2022-07-31 Outpatient [facility] [id number] Juan C 09:44:57 09:44:57 1014 F Wally 2022-07-28 2022-07-28 Outpatient [facility] [id number] Juan C 17:33:24 17:33:24 1011 F Wally 2022-07-28 2022-07-28 Outpatient [id number] 00:00:00 00:00:00 Visit [id number] 2022-05-06 2022-05-06 Outpatient [id number] 00:00:00 00:00:00 Visit [id number] 918aff Results Test Description Test Time Test Comments Results Result Comments Source LIPID PANEL 2022-08-01 05:05:00 Test Item Value Reference Range Interpretation Comme nts CHOLESTEROL (test code = 2210) 148 MG/DL <200 TRIGLYCERIDES (test code = 2232) 54 MG/DL <150 HDL CHOLESTEROL (test code = 64 MG/DL >39 2219) CALC LDL CHOL (test code = 2237) 71 MG/DL <100 NOTE: CALCULATED LDL IS BASED ON KAREN-CAIN METHOD WHICHINCLUDES A DJUSTABLE TRIGLYCERIDE:VL DL CHOLESTEROL RATIO.THIS FACT OR VARIES BY MEASURED TRIGLY CERIDE AND NON-HDLCHOLESTE ROL CONCENTRATIONS WITH INCREASED CALCULATED LDL SEENIN HIGHER T RIGLYCERIDE OR LOWER NON-HDL S PECIMENS. FOR MOREINFORMATION , SEE CLIENT ANNOUNCEMENT AT [email or web address] RISK RATIO LDL/HDL (test code = 1.11 RATIO <3.22 2237) COMPREHENSIVE METABOLIC [id number] 05:05:00 Test Item Value Reference Range Interpretation Comments GLUCOSE (test code = 107 MG/DL 70-99 H 2216) BUN (test code = 20 MG/DL 6-20 2207) CREATININE (test 0.69 MG/DL 0.60-1.30 code = 2214) eGFR (2020 CKD-EPI) 103 >60 (test code = 67103) ML/MIN/1.73 CALC BUN/CREAT (test 29 RATIO 6-28 H code = 2235) SODIUM (test code = 142 MEQ/L 855-428 7295) POTASSIUM (test code 4.2 MEQ/L 3.5-5.4 = 2227) CHLORIDE (test code 106 MEQ/L 95-107 = 221) CARBON DIOXIDE (test 25 MEQ/L 19-31 code = 2206) CALCIUM (test code = 9.8 MG/DL 8.5-10.5 2208) PROTEIN, TOTAL (test 6.9 G/DL 6.1-8.3 code = 2229) ALBUMIN (test code = 4.6 G/DL 3.5-5.2 2200) CALC GLOBULIN (test 2.3 G/DL 1.9-3.7 code = 2240) CALC A/G RATIO (test 2.0 RATIO 1.0-2.6 code = 2234) BILIRUBIN, TOTAL 0.4 MG/DL See_Comment [Automated message] (test code = 2207) The syste m which generated this result transmitted ref erence range: <=1.2. T he reference range was not used to int erpret this result as normal/abnormal . ALKALINE PHOSPHATASE 103 U/L 40-133 (test code = 220) AST (test code = 16 U/L 9-40 2217) ALT (test code = 14 U/L 5-40 UNLESS OTH ERWISE 2218) INDICATED, ALL TESTING PERFORM ED ATCLINICAL PATH [facility], [facility]. [address] [place] [id number] [place] [address] DIRECTOR: MARIAJOSE BOND M.D. CLIA NUMBER [id number] CAP ACCREDITATION N O. [id number] LIPID PANEL [ADDED]2022-08-01 00:00:00 Test Item Value Reference Range Interpretation Comments CHOLESTEROL (test code = 2210) 148 MG/DL TRIGLYCERIDES (test code = 2232) 54 MG/DL HDL CHOLESTEROL (test code = 2220) 64 MG/DL CALC LDL CHOL (test code = 2237) 71 MG/DL RISK RATIO LDL/HDL (test code = 1.11 RATIO 2238) LIPID PANEL [ADDED]2022-08-01 00:00:00 Test Item Value Reference Range Interpretation Comments CHOLESTEROL (test code = 2210) 148 MG/DL TRIGLYCERIDES (test code = 2232) 54 MG/DL HDL CHOLESTEROL (test code = 2220) 64 MG/DL CALC LDL CHOL (test code = 2237) 71 MG/DL RISK RATIO LDL/HDL (test code = 1.11 RATIO 2238) COMPREHENSIVE METABOLIC PANEL [ADDED]2022-08-01 00:00:00 Test Item Value Reference Range Interpretation Comments GLUCOSE (test code = 2217) 107 MG/DL BUN (test code = 2208) 20 MG/DL CREATININE (test code = 2214) 0.69 MG/DL eGFR (2020 CKD-EPI) (test 103 ML/MIN/1.73 code = 10216) CALC BUN/CREAT (test code = 29 RATIO 2235) SODIUM (test code = 2231) 142 MEQ/L POTASSIUM (test code = 2228) 4.2 MEQ/L CHLORIDE (test code = 2215) 106 MEQ/L CARBON DIOXIDE (test code = 25 MEQ/L 220) CALCIUM (test code = 2209) 9.8 MG/DL PROTEIN, TOTAL (test code = 6.9 G/DL 2228) ALBUMIN (test code = 2201) 4.6 G/DL CALC GLOBULIN (test code = 2.3 G/DL 2240) CALC A/G RATIO (test code = 2.0 RATIO 2234) BILIRUBIN, TOTAL (test code = 0.4 MG/DL 2206) ALKALINE PHOSPHATASE (test 103 U/L code = 2204) AST (test code = 2218) 16 U/L ALT (test code = 2219) 14 U/L COMPREHENSIVE METABOLIC PANEL [ADDED]2022-08-01 00:00:00 Test Item Value Reference Range Interpretation Comments GLUCOSE (test code = 2217) 107 MG/DL BUN (test code = 2208) 20 MG/DL CREATININE (test code = 2214) 0.69 MG/DL eGFR (2020 CKD-EPI) (test 103 ML/MIN/1.73 code = 39070) CALC BUN/CREAT (test code = 29 RATIO 2235) SODIUM (test code = 2231) 142 MEQ/L POTASSIUM (test code = 2228) 4.2 MEQ/L CHLORIDE (test code = 2215) 106 MEQ/L CARBON DIOXIDE (test code = 25 MEQ/L 2205) CALCIUM (test code = 2209) 9.8 MG/DL PROTEIN, TOTAL (test code = 6.9 G/DL 2228) ALBUMIN (test code = 2201) 4.6 G/DL CALC GLOBULIN (test code = 2.3 G/DL 2240) CALC A/G RATIO (test code = 2.0 RATIO 2234) BILIRUBIN, TOTAL (test code = 0.4 MG/DL 2206) ALKALINE PHOSPHATASE (test 103 U/L code = 2204) AST (test code = 2218) 16 U/L ALT (test code = 2219) 14 U/L OCCULT BLD,FECAL,IMMUNOASSAY [id number] 16:24:17 Test Item Value Reference Range Interpretation Comments OCCULT BLD, FECAL NEGATIVE NEGATIVE Note: Spe cimen received (test code = 00925) in an ex pired collection system. Results and details of anal ysis reviewed by [facility] ELDA ISAAC M.D. UNLESS OTHERWISE INDIC ATED, ALL TESTING PERFORM ED ATCLINICAL PATH [facility], [facility]. [address] [place] [address] LABORATORY DIRE CTOR: Kem AGUAYO CLIA NUMBER [id number] CAP ACCREDITATION N O. [id number] OCCULT BLD,FECAL,IMMUNOASSAY [id number] 00:00:00 Test Item Value Reference Range Interpretation Comments OCCULT BLD, FECAL (test code = NEGATIVE 93869) OCCULT BLD,FECAL,IMMUNOASSAY [id number] 00:00:00 Test Item Value Reference Range Interpretation Comments OCCULT BLD, FECAL (test code = NEGATIVE 28622) OCCULT BLD,FECAL,IMMUNOASSAY [id number] 00:00:00 Test Item Value Reference Range Interpretation Comments OCCULT BLD, FECAL (test code = NEGATIVE 74415) OCCULT BLD,FECAL,IMMUNOASSAY [id number] 00:00:00 Test Item Value Reference Range Interpretation Comments OCCULT BLD, FECAL (test code = NEGATIVE 93258) OCCULT BLD,FECAL,IMMUNOASSAY [id number] 00:00:00 Test Item Value Reference Range Interpretation Comments OCCULT BLD, FECAL (test code = NEGATIVE 53385) OCCULT BLD,FECAL,IMMUNOASSAY [id number] 00:00:00 Test Item Value Reference Range Interpretation Comments OCCULT BLD, FECAL (test code = NEGATIVE 33799) OCCULT BLD,FECAL,IMMUNOASSAY [id number] 00:00:00 Test Item Value Reference Range Interpretation Comments OCCULT BLD, FECAL (test code = NEGATIVE 32869) OCCULT BLD,FECAL,IMMUNOASSAY [id number] 00:00:00 Test Item Value Reference Range Interpretation Comments OCCULT BLD, FECAL (test code = NEGATIVE 59075) OCCULT BLD,FECAL,IMMUNOASSAY [id number] 00:00:00 Test Item Value Reference Range Interpretation Comments OCCULT BLD, FECAL (test code = NEGATIVE 18966)
[2022-11-05] MEDS ORDERED: NA CHLORIDE 0.9% 1,000 ML ONE (20:44)
[2022-11-05] MEDS ORDERED: KETOROLAC 30 MG/ML INJ ONE (20:44)
[2022-11-05 20:57] LABS: Urine Blood Trace-intact (Negative); Urine Glucose Negative (Negative); Urine Protein Negative (Negative); Urine Specific Gravity <=1.005 (1.005-1.030); Urine pH 6.5 (5.0-7.0)
[2022-11-05 21:10] LABS: Absolute Lymphocytes (CBC) 1.5 K/uL (0.7-4.9); Hematocrit 43.9 % (36.0-45.0); Lymphocytes % 29.4 % (15.3-44.8); MCV 88.9 fL (80-100); MPV 8.3 fL (7.6-11.3); RBC Red Blood Cell Count 4.94 M/uL (3.86-4.86)
[2022-11-05 21:22] LABS: Albumin 4.1 g/dL (3.4-5.0); Bilirubin Total 0.3 mg/dL (0.2-1.0); Potassium 3.9 mmol/L (3.5-5.1); Protein, Total 7.7 g/dL (6.4-8.2)
--- NOTE | 2022-11-05 21:46 | RAD REPORT ---
EXAM DESCRIPTION: CTAbdomen Pelvis W Contrast - 11/05/2022 9:34 pm CLINICAL HISTORY: Abdominal pain. flank COMPARISON: No comparisons TECHNIQUE: Biphasic CT imaging of the abdomen and pelvis was performed with 100 ml non-ionic IV cont rast. All CT scans are performed using dose optimization technique as appropriate and may include automated exposure control or mA/KV adjustment according to patient size. FINDINGS: The lung bases are clear. The liver, spleen, pancreas, adrenal glands and kidneys are within normal limits. Tiny nonobstructive left renal calculus. Cholelithiasis with gallbladder distension. No bowel obstruction, free air, free fluid or abscess. The appendix is normal. No evidence of signi ficant lymphadenopathy. No suspicious bony findings. IMPRESSION: Cholelithiasis. Tiny nonobstructing left renal calculus.
--- NOTE | 2022-11-05 22:03 | ER ---
Nurse's Notes [facility] Name: Alfonso Waldron Age: 52 yrs Sex: Female : 1970 Arrival Date: 11/05/2022 Time: 19:56 Bed 10 Private MD: Diagnosis: UTI/ Urinary tract infection, site not specified;Unspecified symptoms and signs involving the musculoskeletal system Presentation: 11/05 20:11 Chief complaint: Patient states: "I have been having back pain when it hits it feels vc1 like a contraction and it makes me pass out. I did it about 4 months ago too.". Coronavirus screen: Vaccine status: Patient reports receiving the 2nd dose of the covid vaccine. Plus 1 booster; Moderna Client denies travel out of the [place] in the last 14 days. At this time, the client does not indicate any symptoms associated with coronavirus-19. Ebola Screen: Patient negative for fever greater than or equal to 101.5 degrees Fahrenheit, and additional compatible Ebola Virus Disease symptoms Patient denies exposure to infectious person. Patient denies travel to an Ebola-affected area in the 21 days before illness onset. No symptoms or risks identified at this time. Risk Assessment: Do you want to hurt yourself or someone else? Patient reports no desire to harm self or others. Onset of symptoms is unknown. 20:11 Method Of Arrival: Ambulatory vc1 20:11 Acuity: DAWNA 3 vc1 23:10 Initial Sepsis Screen: Does the patient meet any 2 criteria? No. Patient's initial eh3 sepsis screen is negative. Does the patient have a suspected source of infection? No. Patient's initial sepsis screen is negative. Triage Assessment: 20:12 General: Appears in no apparent distress. uncomfortable, Behavior is calm, cooperative, vc1 appropriate for age. Pain: Complains of pain in left low back Pain radiates to left leg Pain currently is 5 out of 10 on a pain scale. EENT: No deficits noted. No signs and/or symptoms were reported regarding the EENT system. Neuro: Level of Consciousness is awake, alert, obeys commands, Oriented to person, place, time, situation, Appropriate for age. Cardiovascular: No deficits noted. Respiratory: Airway is patent Respiratory effort is even, unlabored, Respiratory pattern is regular, symmetrical. GI: No deficits noted. No signs and/or symptoms were reported involving the gastrointestinal system. : No deficits noted. No signs and/or symptoms were reported regarding the genitourinary system. Denies burning with urination, urinary frequency, urgency. Derm: No deficits noted. No signs and/or symptoms reported regarding the dermatologic system. Musculoskeletal: Reports pain in back. 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 - Social history:: Smoking status: Patient denies any tobacco usage or history of. Screenin:15 [facility] ED Fall Risk Assessment (Adult) History of falling in the last 3 months, vc1 including since admission No falls in past 3 months (0 pts) Confusion or Disorientation No (0 pts) Intoxicated or Sedated No (0 pts) Impaired Gait No (0 pts) Mobility Assist Device Used No (0 pt) Altered Elimination No (0 pt) Score/Fall Risk Level 0 - 2 = Low Risk Oriented to surroundings, Maintained a safe environment, Educated pt \\T\\ family on fall prevention, incl call for assistance when getting out of bed. Abuse screen: Denies threats or abuse. Nutritional screening: No deficits noted. Tuberculosis screening: No symptoms or risk factors identified. Assessment: 20:24 General: Appears in no apparent distress. uncomfortable, Behavior is calm, cooperative, eh3 appropriate for age. Pain: Complains of pain in back Also complains of losing consciousness due to the pain. Neuro: Level of Consciousness is awake, alert, obeys commands, Oriented to person, place, time, situation. Cardiovascular: Capillary refill < 3 seconds Patient's skin is warm and dry. Respiratory: Airway is patent Respiratory effort is even, unlabored, Respiratory pattern is regular, symmetrical. GI: No signs and/or symptoms were reported involving the gastrointestinal system. Abdomen is round non-distended. : No signs and/or symptoms were reported regarding the genitourinary system. EENT: No signs and/or symptoms were reported regarding the EENT system. Derm: Skin is pink, warm \\T\\ dry. Musculoskeletal: Circulation, motion, and sensation intact. Range of motion: intact in all extremities. 21:30 Reassessment: Patient appears in no apparent distress at this time. Patient and/or eh3 family updated on plan of care and expected duration. Pain level reassessed. Patient is alert, oriented x 3, equal unlabored respirations, skin warm/dry/pink. 22:30 Reassessment: Patient appears in no apparent distress at this time. Patient and/or eh3 family updated on plan of care and expected duration. Pain level reassessed. Patient is alert, oriented x 3, equal unlabored respirations, skin warm/dry/pink. Vital Signs: 20:11 Weight 58.97 kg; Height 5 ft. 0 in. (152.40 cm); Pain 5/10; vc1 20:24 BP 142 / 76; Pulse 78; Resp 18; Pulse Ox 100% on R/A; eh3 21:30 BP 151 / 72; Pulse 76; Resp 18; Pulse Ox 100% on R/A; eh3 20:11 Body Mass Index 25.39 (58.97 kg, 152.40 cm) vc1 ED Course: 19:56 Patient arrived in ED. rg4 20:05 Mercedes Morrell, LAKESHA is Primary Nurse. eh3 20:08 Apolinar Swan MD is Attending Physician. joleen 20:12 Triage completed. vc1 20:14 Arm band placed on right wrist. vc1 20:24 Patient has correct armband on for positive identification. Bed in low position. Call eh3 light in reach. Side rails up X2. Adult w/ patient. Pulse ox on. NIBP on. Door closed. Noise minimized. Warm blanket given. 20:50 Missed attempt(s): 22 gauge in right antecubital area. Bleeding controlled, band aid eh3 applied, catheter tip intact. 21:00 Inserted saline lock: 22 gauge in left antecubital area, using aseptic technique. Blood eh3 collected. 21:36 CT Abd/Pelvis - IV Contrast Only In Process Unspecified. EDMS 22:01 Lennox Yepez DO is Referral Physician. joleen 23:10 No provider procedures requiring assistance completed. IV discontinued, intact, eh3 bleeding controlled, No redness/swelling at site. Pressure dressing applied. Administered Medications: 21:00 Drug: NS 0.9% 1000 ml Route: IV; Rate: 1 bolus; Site: left antecubital; 3 22:00 Follow up: IV Status: Completed infusion; IV Intake: 1000ml 3 21:00 Drug: Ketorolac 30 mg Route: IVP; Site: left antecubital; 3 21:41 Follow up: Response: Pain is decreased 3 22:45 Drug: Rocephin (cefTRIAXone) 1 grams Route: IV; Rate: per protocol; Site: left eh3 antecubital; 22:45 Follow up: Response: No adverse reaction; IV Status: Completed infusion; IV Intake: [id number] Medication: 20:15 VIS not applicable for this client. vc1 Intake: 22:00 IV: 1000ml; Total: 1000ml. eh3 22:45 IV: 50ml; Total: 1050ml. 3 Outcome: 22:03 Discharge ordered by MD. goodrich 23:10 Discharged to home ambulatory, with family. 3 23:10 Condition: stable 23:10 Discharge instructions given to patient, family, Instructed on discharge instructions, follow up and referral plans. medication usage, Demonstrated understanding of instructions, follow-up care, medications, Prescriptions given X 2. 23:30 Patient left the ED. 3 Signatures: Dispatcher [employer] Apolinar De La Rosa MD MD cha Garcia, Rubi rg4 Maddie Pastor RN RN 1 Mercedes Morrell RN RN 3
[2022-11-05 22:04] LABS: Urine Specific Gravity/Preg <1.005 (1.005-1.030)
--- NOTE | 2022-11-05 22:04 | EDPHYS ---
Physician Documentation [facility] Name: Alfonso Waldron Age: 52 yrs Sex: Female : 1970 Arrival Date: 11/05/2022 Time: 19:56 Bed 10 Private MD: Apolinar Hair HPI: 11/05 20:39 This 52 yrs old Female presents to ER via Ambulatory with complaints of Low joleen Back Pain. 20:39 The patient presents with pain that is acute, that is chronic. The symptoms are located joleen in the low back, left low back and left mid back. The pain does not radiate. 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 - Social history:: Smoking status: Patient denies any tobacco usage or history of. ROS: 21:57 Constitutional: Negative for fever, chills, and weight loss, Eyes: Negative for injury, joleen pain, redness, and discharge, ENT: Negative for injury, pain, and discharge, Neck: Negative for injury, pain, and swelling, Cardiovascular: Negative for chest pain, palpitations, and edema, Respiratory: Negative for shortness of breath, cough, wheezing, and pleuritic chest pain, Abdomen/GI: Negative for abdominal pain, nausea, vomiting, diarrhea, and constipation, : Negative for injury, bleeding, discharge, and swelling, MS/Extremity: Negative for injury and deformity, Skin: Negative for injury, rash, and discoloration, Neuro: Negative for headache, weakness, numbness, tingling, and seizure, Psych: Negative for depression, anxiety, suicide ideation, homicidal ideation, and hallucinations, Allergy/Immunology: Negative for hives, rash, and allergies, Endocrine: Negative for neck swelling, polydipsia, polyuria, polyphagia, and marked weight changes, Hematologic/Lymphatic: Negative for swollen nodes, abnormal bleeding, and unusual bruising. 21:57 Back: Positive for decreased range of motion, flank pain, on the left. Exam: 21:57 Constitutional: This is a well developed, well nourished patient who is awake, alert, joleen and in no acute distress. Head/Face: Normocephalic, atraumatic. Eyes: Pupils equal round and reactive to light, extra-ocular motions intact. Lids and lashes normal. Conjunctiva and sclera are non-icteric and not injected. Cornea within normal limits. Periorbital areas with no swelling, redness, or edema. ENT: Nares patent. No nasal discharge, no septal abnormalities noted. Tympanic membranes are normal and external auditory canals are clear. Oropharynx with no redness, swelling, or masses, exudates, or evidence of obstruction, uvula midline. Mucous membranes moist. Neck: Trachea midline, no thyromegaly or masses palpated, and no cervical lymphadenopathy. Supple, full range of motion without nuchal rigidity, or vertebral point tenderness. No Meningismus. Chest/axilla: Normal chest wall appearance and motion. Nontender with no deformity. No lesions are appreciated. Cardiovascular: Regular rate and rhythm with a normal S1 and S2. No gallops, murmurs, or rubs. Normal PMI, no JVD. No pulse deficits. Respiratory: Lungs have equal breath sounds bilaterally, clear to auscultation and percussion. No rales, rhonchi or wheezes noted. No increased work of breathing, no retractions or nasal flaring. Abdomen/GI: Soft, non-tender, with normal bowel sounds. No distension or tympany. No guarding or rebound. No evidence of tenderness throughout. Skin: Warm, dry with normal turgor. Normal color with no rashes, no lesions, and no evidence of cellulitis. MS/ Extremity: Pulses equal, no cyanosis. Neurovascular intact. Full, normal range of motion. Neuro: Awake and alert, GCS 15, oriented to person, place, time, and situation. Cranial nerves II-XII grossly intact. Motor strength 5/5 in all extremities. Sensory grossly intact. Cerebellar exam normal. Normal gait. Psych: Awake, alert, with orientation to person, place and time. Behavior, mood, and affect are within normal limits. 21:57 Back: pain, that is mild, ROM is normal, normal spinal alignment noted, CVA tenderness, that is mild, is noted on the left, muscle spasm, is not present. Vital Signs: 20:11 Weight 58.97 kg; Height 5 ft. 0 in. (152.40 cm); Pain 5/10; vc1 20:24 BP 142 / 76; Pulse 78; Resp 18; Pulse Ox 100% on R/A; eh3 21:30 BP 151 / 72; Pulse 76; Resp 18; Pulse Ox 100% on R/A; eh3 20:11 Body Mass Index 25.39 (58.97 kg, 152.40 cm) vc1 MDM: 20:08 Patient medically screened. [facility] 22:00 Differential diagnosis: strain, contusion, Herniated disc UTI. Data reviewed: vital joleen signs, nurses notes, lab test result(s), radiologic studies, CT scan. Consideration of Admission/Observation Escalation of care including admission/observation considered. I considered the following discharge prescriptions or medication management in the emergency department Medications were administered in the Emergency Department. See MAR. Historians other than the Patient: Spouse/Significant Other: . Care significantly affected by the following chronic conditions: Hypertension, insomnia. 11/05 20:37 Order name: CBC with Diff; Complete Time: 21:54 [facility] 11/05 20:37 Order name: CMP; Complete Time: 21:54 [facility] 11/05 20:37 Order name: Lipase; Complete Time: 21:54 [facility] 11/05 20:57 Order name: Urine Dipstick-Ancillary; Complete Time: 21:54 EDMS 11/05 21:06 Order name: Urine --Ancillary (enter results) 11/05 21:56 Order name: Urine Culture [facility] 11/05 20:37 Order name: CT Abd/Pelvis - IV Contrast Only; Complete Time: 21:54 [facility] 11/05 20:37 Order name: IV Saline Lock; Complete Time: 21:00 [facility] 11/05 20:37 Order name: Labs collected and sent; Complete Time: 21:00 [facility] 11/05 20:37 Order name: Urine Dipstick-Ancillary (obtain specimen); Complete Time: 21:00 [facility] 11/05 20:37 Order name: Urine Test (obtain specimen); Complete Time: 21:00 [facility] Administered Medications: 21:00 Drug: NS 0.9% 1000 ml Route: IV; Rate: 1 bolus; Site: left antecubital; 3 22:00 Follow up: IV Status: Completed infusion; IV Intake: 1000ml [facility] 21:00 Drug: Ketorolac 30 mg Route: IVP; Site: left antecubital; [facility] 21:41 Follow up: Response: Pain is decreased [facility] 22:45 Drug: Rocephin (cefTRIAXone) 1 grams Route: IV; Rate: per protocol; Site: left [facility] antecubital; 22:45 Follow up: Response: No adverse reaction; IV Status: Completed infusion; IV Intake: [id number] Disposition Summary: 11/05/22 22:03 Discharge Ordered Location: Home joleen Problem: new joleen Symptoms: have improved joleen Condition: Stable joleen Diagnosis - UTI/ Urinary tract infection, site not specified joleen - Unspecified symptoms and signs involving the musculoskeletal system joleen Followup: joleen - With: Private Physician - When: 2 - 3 days - Reason: Recheck today's complaints, Continuance of care, Re-evaluation by your physician Followup: joleen - With: Lennox Yepez, DO - When: 2 - 3 days - Reason: Recheck today's complaints, Re-evaluation by your physician Discharge Instructions: - Discharge Summary Sheet joleen - Dysuria joleen - Urinary Tract Infection, Adult joleen - Urinary Tract Infection, Adult, [id number] joleen - Musculoskeletal Pain joleen Forms: - Medication Reconciliation Form joleen - Thank You Letter joleen - Antibiotic Education joleen - Prescription Opioid Use [facility] Prescriptions: - Cipro 250 mg Oral Tablet - take 1 tablet by ORAL route every 12 hours; 14 tablet; Refills: 0, Product joleen Selection Permitted - Ibuprofen 600 mg Oral Tablet - take 1 tablet by ORAL route every 8 hours As needed take with food; 21 tablet; joleen Refills: 0, Product Selection Permitted Signatures: Dispatcher [employer] Apolinar De La Rosa MD MD cha Calcote, Vanessa, RN RN vc1 Mercedes Morrell RN RN eh3
[2022-11-05] MEDS ORDERED: NA CHLORIDE 0.9% 50 ML IV ONE (22:39)
[2022-11-05] MEDS ORDERED: CEFTRIAXONE 1000 MG/VIAL ONE (22:39)
[2022-11-05 23:56] VITALS: O2SAT 100
[2022-11-05 23:57] VITALS: BP 151/72
== END 2022-11-05 23:30 | disposition home or self-care (01) ==
LOC: ER 19:51
DX: N39.0 Urinary tract infection, site not specified (principal); R29.91 Unspecified symptoms and signs involving the musculoskeletal system; I10 Essential (primary) hypertension; G47.00 Insomnia, unspecified
CPT/HCPCS: 96361; 87088; 85025; 87086; 36415; 81025; 81003; 83690; 80053; 74177; 96375; 96374; 99284; Q9967; J7030